=== PATIENT | male | born 1995 | race Caucasian/White ===

== ENCOUNTER 2017-10-08 14:37 | Emergency (ER) | payer OTHER ==
[~2017-10-08] VITALS: Ht 188 cm; Wt 65.8 kg
[~2017-10-08 14:37] MED LIST: RXCODACESY PO; RXONDA4ODT MM; SULF10OPSA OU
[2017-10-08 15:05] LABS: BASOPHILS ABSOLUTE AUTO 0.06 K/mm3 (0.00-0.23); BASOPHILS PERCENT AUTO 1 % (0-2); EOSINOPHILS ABSOLUTE AUTO 0.24 K/mm3 (0.00-0.68); EOSINOPHILS PERCENT AUTO 4 % (0-6); Hematocrit 47.8 % (37.0-53.0); Hemoglobin 15.8 g/dL (13.5-17.5); IMMATURE GRAN ABSOLUTE AUTO 0.02 K/mm3 (0.00-0.10); IMMATURE GRAN PERCENT AUTO 0 % (0-1); LYMPHOCYTES ABSOLUTE AUTO 1.48 K/mm3 (0.84-5.20); LYMPHOCYTES PERCENT AUTO 22 % (21-46); MONOCYTES ABSOLUTE AUTO 0.45 K/mm3 (0.16-1.47); MONOCYTES PERCENT AUTO 7 % (4-13); Mean Corpuscular HGB 28.7 pg (26.0-34.0); Mean Corpuscular HGB Conc 33.1 g/dL (31.5-36.5); Mean Corpuscular Volume 87 fL (80-100); Mean Platelet Volume 10.4 fL (9.1-12.4); NEUTROPHILS ABSOLUTE AUTO 4.53 K/mm3 (1.96-9.15); NEUTROPHILS PERCENT AUTO 67 % (41-73); Platelet Count 255 K/mm3 (150-400); RDW Coefficient Variation 12.7 % (11.7-14.2); RDW Standard Deviation 40.4 fL (35.1-46.3); White Blood Cell Count 6.78 K/mm3 (4.00-11.30)
[2017-10-08 15:33] LABS: Alanine Aminotransfer (ALT/SGP 29 U/L (12-78); Albumin, Blood 4.4 g/dL (3.4-5.0); Albumin/Globulin Ratio 1.2 (0.8-1.8); Alk Phos 75 U/L (50-136); Anion Gap 6 mmol/L (6-16); Aspartate Aminotrans (AST/SGOT 20 U/L (12-37); Bilirubin, Total 1.3 mg/dL (0.1-1.0); Blood Urea Nitrogen 13 mg/dL (8-24); Bun/Creatinine Ratio 14.4 (12.0-20.0); CO2, Blood 27 mmol/L (21-32); Calcium, Blood 9.3 mg/dL (8.5-10.1); Chloride, Blood 106 mmol/L (98-108); Globulin, Blood 3.7 g/dL (2.2-4.0); Glomerular Filtration Rate >60 (60-); Glucose, Blood 92 mg/dL (70-99); Potassium, Blood 3.9 mmol/L (3.5-5.5); Sodium, Blood 139 mmol/L (136-145); Total Protein, Blood 8.1 g/dL (6.4-8.2)
[2017-10-08 16:27] LABS: Source, Urine Clean Catch
[2017-10-08 16:45] LABS: Appearance, Urine Cloudy (Clear); Bilirubin, Urine Neg (Neg); Blood, Urine Neg (Neg); Color, Urine Yellow (P-Yellow); Glucose Qualitative, Urine Neg (Neg); Ketones, Urine 2+ (Neg); Leukocyte Esterase, Urine Neg (Neg); Nitrite, Urine Neg (Neg); Protein, Urine Neg (Neg); Specific Gravity, Urine 1.015 (1.003-1.022); Urobilinogen, Urine NORM (Normal)
[2017-10-08 17:00] LABS: U Amphetamine Screen Not Detected; U Barbituate Screen Not Detected; U Benzodiazapine Screen Not Detected; U Buprenorphine Screen Not Detected; U Cannabinoids Screen Not Detected; U Cocaine Screen Not Detected; U Methadone Screen Not Detected; U Methamphetamine Screen Not Detected; U Opiates Screen Not Detected; U Oxycodone Screen Not Detected; U Phencyclidine Screen Not Detected; U Propoxyphene Screen Not Detected
[2017-10-08 17:02] LABS: Amorphous Heavy (0-Heavy); Bacteria Rare /hpf; Red Blood Cells, Urine Not Seen /hpf (0-2); Squamous Epithelial Cells Rare /hpf (Few)
== END 2017-10-08 16:50 | disposition home or self-care (01) ==
LOC: ER 14:37
PROVIDERS: Emergency Medicine
DX: E86.0 Dehydration (principal); R55 Syncope and collapse; R11.0 Nausea; Z59.0 Homelessness; Z72.820 Sleep deprivation
CPT/HCPCS: 80053; 81001; 82272; 83690; 85025; 87086; 93005; 93010; 99284-25

== ENCOUNTER 2024-02-21 13:37 | Emergency (ER) | payer OTHER ==
[~2024-02-21] VITALS: Ht 185.4 cm; Wt 68.0 kg
[2024-02-21 13:40] VITALS: BP 120/83
== END 2024-02-21 15:35 | disposition home or self-care (01) ==
LOC: ER 13:37
DX: R55 Syncope and collapse (principal); R07.9 Chest pain, unspecified
CPT/HCPCS: 71046; 99284

== ENCOUNTER → 2024-02-21 | Outpatient (CLI) | payer OTHER ==
[2024-02-21 12:02] LABS: BASOPHILS PERCENT AUTO 1 % (0-2); EOSINOPHILS ABSOLUTE AUTO 0.25 K/mm3 (0.00-0.68); EOSINOPHILS PERCENT AUTO 3 % (0-6); Hematocrit 47.8 % (37.0-53.0); Hemoglobin 15.9 g/dL (13.5-17.5); IMMATURE GRAN ABSOLUTE AUTO 0.03 K/mm3 (0.00-0.10); IMMATURE GRAN PERCENT AUTO 0 % (0-1); LYMPHOCYTES ABSOLUTE AUTO 1.27 K/mm3 (0.84-5.20); LYMPHOCYTES PERCENT AUTO 15 % (21-46); MONOCYTES ABSOLUTE AUTO 0.48 K/mm3 (0.16-1.47); MONOCYTES PERCENT AUTO 6 % (4-13); Mean Corpuscular HGB 29.7 pg (26.0-34.0); Mean Corpuscular HGB Conc 33.3 g/dL (31.5-36.5); Mean Corpuscular Volume 89 fL (80-100); Mean Platelet Volume 10.1 fL (9.1-12.4); NEUTROPHILS ABSOLUTE AUTO 6.13 K/mm3 (1.96-9.15); NEUTROPHILS PERCENT AUTO 74 % (41-73); Platelet Count 244 K/mm3 (150-400); RDW Coefficient Variation 12.6 % (11.7-14.2); Red Blood Cell Count 5.35 M/mm3 (4.30-5.90); White Blood Cell Count 8.26 K/mm3 (4.00-11.30)
[2024-02-21 12:12] LABS: Albumin, Blood 4.8 g/dL (3.4-5.0); Albumin/Globulin Ratio 1.5 (0.8-1.8); Bilirubin, Total 0.6 mg/dL (0.1-1.0); Bun/Creatinine Ratio 9.4 (12.0-20.0); Calcium, Blood 9.4 mg/dL (8.5-10.1); Creatinine, Blood 0.96 mg/dL (0.60-1.20); Globulin, Blood 3.3 g/dL (2.2-4.0); Potassium, Blood 4.6 mmol/L (3.5-5.5); Total Protein, Blood 8.1 g/dL (6.4-8.2)
== END | disposition home or self-care (01) ==
LOC: LAB 11:58 → LAB SHORT 11:58
PROVIDERS: Emergency Medicine
DX: R07.9 Chest pain, unspecified (principal)
CPT/HCPCS: 80053; 83880; 84484; 85025; 85379

== ENCOUNTER 2024-08-10 09:00 | Day surgery (SDC) | payer OTHER ==
[~2024-08-10] VITALS: Ht 188 cm; Wt 70.6 kg
[~2024-08-10 09:00] MED LIST changes: +LEVE500 PO; +Lactated Ringer's 1,000 ML IV ONE
[2024-08-10] MEDS ORDERED: CeFAZolin Sodium 2,000 MG VIAL ONE (09:08)
[2024-08-10] MEDS ORDERED: Lactated Ringer's 1,000 ML IV ONE ×2 (09:36→13:23)
--- NOTE | 2024-08-10 10:10 | NUR ---
08/10/24 1010 Ramires,Johnny ROUNDS: PT APPEARS COMFORTABLE AND DENIES ANY NEEDS AT THIS TIME.
[2024-08-10] MEDS ORDERED: propofoL 20 ML IV ONE (11:11)
[2024-08-10] MEDS ORDERED: FentaNYL Citrate 50 MCG/ML 2 ML Injection ONE (11:11)
[2024-08-10] MEDS ORDERED: Midazolam HCl 1MG / ML 2ML Vial ONE (12:04)
[2024-08-10] MEDS ORDERED: Dexamethasone Sod Phos 10 MG/ML 1ML VIAL ONE (12:28)
[2024-08-10] MEDS ORDERED: Ondansetron HCl 2 MG / ML 2ML Vial ONE ×2 (12:28→15:36)
[2024-08-10] MEDS ORDERED: Ketorolac Tromethamine 30mg Vial ONE (13:05)
--- NOTE | 2024-08-10 15:26 | NUR ---
08/10/24 1526 Gris Kay REPORT RECEIVED FROM MAGUE AND RN. PT ASLEEP WITH ORAL AIRWAY IN PLACE UPON ARRIVAL TO PACU. VSS. RA. HOB FLAT. PT NOT AROUSABLE TO VOICE AT THIS TIME. LEFT ARM ELEVATED ON PILLOW, SLING IN PLACE. CAP REFILL <3 SECONDS, FINGERS WARM, PINK, MOIST. PT DIAPHORETIC, BLANKETS REMOVED.
[2024-08-10] MEDS ORDERED: HYDROmorphone HCl/Pf 1MG SYR ONE (15:52)
[2024-08-10] MEDS ORDERED: Metoclopramide HCl 5MG / ML 2ML Vial ONE (16:00)
[2024-08-10 16:04] VITALS: BP 168/85
--- NOTE | 2024-08-10 16:05 | NUR ---
08/10/24 1605 Gris Kay REPORT GIVEN TO RAIZA URBANO AND RAIZA MEDEL. PT ASLEEP, NO ACUTE DISTRESS NOTED AT THIS TIME
[2024-08-10] MEDS ORDERED: OxyCODONE HCL 5 MG TAB ONE (16:29)
== END 2024-08-10 16:56 | disposition home or self-care (01) ==
LOC: ORSCSDS 09:00
PROVIDERS: Orthopaedic Surgery
PROC: 0PSJ04Z Reposition Left Radius with Internal Fixation Device, Open Approach (ICD-10-PCS; principal; 2024-08-10 10:30)
DX: S52.122A Displaced fracture of head of left radius, initial encounter for closed fracture (principal); G40.909 Epilepsy, unspecified, not intractable, without status epilepticus; Z79.899 Other long term (current) drug therapy
CPT/HCPCS: A9270; C1713; C1769; J0690; J1100; J1171; J1885; J2250; J2405; J2704; J2765; J3010; J7120

== ENCOUNTER 2025-01-04 10:33 | Day surgery (SDC) | payer OTHER ==
[~2025-01-04] VITALS: Ht 185.4 cm; Wt 70.1 kg
[~2025-01-04 10:33] MED LIST changes: +Bupivacaine 0.5% W/EPI 1:200000 SDV 30 ML Vial ONE; -Lactated Ringer's 1,000 ML IV ONE
[2025-01-04] MEDS ORDERED: CeFAZolin Sodium 2,000 MG VIAL ONE (10:56)
[2025-01-04] MEDS ORDERED: VALP250 (11:30)
[2025-01-04] MEDS ORDERED: FentaNYL Citrate 50 MCG/ML 2 ML Injection ONE ×2 (11:44→13:10)
[2025-01-04] MEDS ORDERED: Midazolam HCl 1MG / ML 2ML Vial ONE (11:44)
[2025-01-04] MEDS ORDERED: Ondansetron HCl 2 MG / ML 2ML Vial ONE (13:12)
[2025-01-04] MEDS ORDERED: Dexamethasone Sod Phos 10 MG/ML 1ML VIAL ONE (13:13)
[2025-01-04 14:30] VITALS: BP 129/64
== END 2025-01-04 15:25 | disposition home or self-care (01) ==
LOC: ORSCSDS 10:33
PROVIDERS: Orthopaedic Surgery
PROC: 0RPM04Z Removal of Internal Fixation Device from Left Elbow Joint, Open Approach (ICD-10-PCS; principal; 2025-01-04 12:15)
DX: T84.9XXA Unspecified complication of internal orthopedic prosthetic device, implant and graft, initial encounter (principal)
CPT/HCPCS: 36415; 80048; A9270; J0690; J1100; J2250; J2405; J2704; J3010; J7120